=== PATIENT | female | born 1945 | race Caucasian/White ===

== ENCOUNTER → 2018-12-06 | Outpatient (CLI) | payer MEDICARE ==
[2018-12-06 12:19] LABS: BASOPHILS % (AUTO) 0 % (0-10); EOSINOPHILS # (AUTO) 0.1 10^3/uL (0.0-0.3); EOSINOPHILS % (AUTO) 2 % (0-10); HEMATOCRIT 38 % (35-52); HEMOGLOBIN 12.5 G/DL (11.5-16.0); LYMPHOCYTES % (AUTO) 20 % (12-44); MEAN CORPUSCULAR HEMOGLOBIN 30 PG (25-34); MEAN CORPUSCULAR HGB CONC 33 G/DL (32-36); MEAN CORPUSCULAR VOLUME 91 FL (80-99); MEAN PLATELET VOLUME 10.3 FL (7.4-10.4); MONOCYTES # (AUTO) 0.6 X 10^3 (0.0-1.0); MONOCYTES % (AUTO) 11 % (0-12); NEUTROPHILS # (AUTO) 3.4 X 10^3 (1.8-7.8); NEUTROPHILS % (AUTO) 67 % (42-75); PLATELET COUNT 240 10^3/uL (130-400); RED CELL DISTRIBUTION WIDTH 12.9 % (10.0-14.5)
== END ==
LOC: LAB FS 11:30
PROVIDERS: ATTEND Family Medicine
DX: C54.1 Malignant neoplasm of endometrium (principal)
CPT/HCPCS: 36415; 85025

== ENCOUNTER 2019-01-02 05:52 | Outpatient (CLI) | payer MEDICARE ==
[~2019-01-02] VITALS: Ht 170.2 cm; Wt 78.5 kg
[2019-01-02] MEDS ORDERED: ATOR40TA70 PO (12:27)
[2019-01-02] MEDS ORDERED: RANI150T90 PO (12:27)
[2019-01-02] MEDS ORDERED: LOSA50TA63 PO (12:27)
[2019-01-02] MEDS ORDERED: HYDR25TA4 PO (12:27)
[2019-01-02] MEDS ORDERED: CHOL10007 PO (12:29)
[2019-01-02] MEDS ORDERED: MULT-178 PO (12:29)
[2019-01-02] MEDS ORDERED: CALC-53 PO (12:29)
[2019-01-02] MEDS ORDERED: DOCU-238 PO (12:29)
[2019-01-02] MEDS ORDERED: CYAN250010 PO (12:29)
[2019-01-02] MEDS ORDERED: DIPH25CA65 PO (12:29)
== END 2019-01-02 13:25 | disposition home or self-care (01) ==
LOC: PREOP 05:52
PROVIDERS: ATTEND Surgery
DX: Z01.818 Encounter for other preprocedural examination (principal)

== ENCOUNTER 2019-01-09 11:17 | Day surgery (SDC) | payer MEDICARE ==
[~2019-01-09] VITALS: Ht 170.2 cm; Wt 78.5 kg
[~2019-01-09 11:17] MED LIST: ATOR40TA70 PO; CALC-53 PO; CHOL10007 PO; CYAN250010 PO; DIPH25CA65 PO; DOCU-238 PO; HYDR25TA4 PO; LOSA50TA63 PO; MULT-178 PO; RANI150T90 PO
[2019-01-09] MEDS ORDERED: LACTATED RINGERS 1,000 ML IV ONE (11:18)
--- OUTSIDE RECORDS SUMMARY | 2019-01-09 11:21 | XMS REPORT ---
Author Author EDIE MACIAS Organization [facility] Address [address] [place] [address] Care Team Providers Care Thickener Operator Name Role Phone EDIE MACIAS Unavailable PROBLEMS Type Condition ICD9-CM Code GOI10-FT Code Onset Dates Condition Status SNOMED Code Problem GERD (gastroesophageal reflux disease) K21.9 Active 090520124 Problem Hypertension, unspecified type I10 Active 36883232 Problem Hyperlipemia E78.5 Active 39349033 Problem Endometrial cancer C54.1 Active 354693324 ALLERGIES Substance Reaction Event Type Date Status Penicillin V Potassium hives Drug Allergy Aug, Active Enalaprilat cough Drug Allergy Aug, Active Clarithromycin rash Drug Allergy Aug, Active ENCOUNTERS Encounter Location Date Diagnosis [facility] [address] [place] [address] Aug, Hypertension, unspecified type I10 ; Hyperlipemia E78.5 ; GERD (gastroesophageal reflux disease) K21.9 and Endometrial cancer C54.1 [facility] [address] [place] [address] Aug, Hypertension, unspecified type I10 [facility] [id number], [place] [address] Aug, Hypertension, unspecified type I10 [facility] [address] [facility] [id number] [address] Jul, IMMUNIZATIONS No Known Immunizations SOCIAL HISTORY Never Assessed REASON FOR VISIT 6 Month F/U w/ labs PLAN OF CARE Activity Details Follow Up 6 Months Reason:fu with labs prior VITAL SIGNS Height 5ft 6in in 2018-08-17 Weight 174lb lbs 2018-08-17 BMI 28.08 kg/m2 2018-08-17 Blood pressure systolic 136 mmHg 2018-08-17 Blood pressure diastolic 72 mmHg 2018-08-17 MEDICATIONS Medication Instructions Dosage Frequency Start Date End Date Duration Status Ascorbic Acid 100 MG Orally Once a day 1 tablet 24h 30 day(s) Unknown Simvastatin 40 MG Orally Once a day 1 tablet in the evening 24h Active Multi Vitamin Daily - Orally Once a day 1 tablet 24h 30 day(s) Active Losartan Potassium 50 MG Orally Once a day 1 tablet 24h Active Cholecalciferol Active Ranitidine 150 Max Strength 150 MG Orally 2 times a day 1 tablet 12h Active Vitamin B-12 Active Calcium Carbonate-Vitamin D 600-400 MG-UNIT Orally Twice a day 1 tablet 12h 30 day(s) Active Ibuprofen 800 MG Orally Three times a day 1 tablet with food or milk as needed 8h Active Hydrochlorothiazide 25 MG Orally Once a day 1 tablet in the morning 24h Active Docusate Sodium 100 MG Orally Once a day 1 capsule as needed 24h 30 day(s) Unknown RESULTS No Results PROCEDURES Procedure Date Ordered Result Body Site [facility] VISIT NEW PATIENT Aug 17, 2018 INSTRUCTIONS MEDICATIONS ADMINISTERED No Known Medications MEDICAL (GENERAL) HISTORY Type Description Date Medical History Endometrial cancer Medical History Hyperlipemia Medical History Hypertension Medical History GERD (gastroesophageal reflux disease) Medical History History of colonic polyps Medical History Postmenopausal atrophic vaginitis Medical History Mixed stress and urge urinary incontinence Surgical History Complete Hysterectomy 04/2016 Hospitalization History Hysterectomy 04/2016
--- OUTSIDE RECORDS SUMMARY | 2019-01-09 11:21 | XMS REPORT | Continuity of Care Document ---
Author Organization Unknown Address Unknown Allergies There is no data. Medications There is no data. Problems There is no data. Procedures There is no data. Results There is no data. Encounters ACCT No. Visit Date/Time Discharge Status Pt. Type Provider Facility Loc./Unit Complaint [id number] 01/01/2019 00:00:00 01/01/2019 23:59:00 DIS Outpatient MARCELLA BAEZ [id number] 12/30/2018 00:00:00 12/30/2018 23:59:00 DIS Outpatient MARCELLA BAEZ [id number] 01/06/2019 09:00:00 ACT Outpatient EDIE MACIAS [facility]
[2019-01-09] MEDS ORDERED: MIDAZOLAM 2 MG/2 ML (VERSED) VIAL ONE (11:30)
[2019-01-09] MEDS ORDERED: PROPOFOL INJECTION 50 ML IV ONE (11:30)
[2019-01-09] MEDS ORDERED: LACTATED RINGERS 1,000 ML IV STA (11:42)
--- NOTE | 2019-01-09 11:42 | Progress Note-Pre Operative ---
Pre-Operative Progress Note H&P Reviewed The H&P was reviewed, patient examined and no changes noted. Time Seen by Provider: 11:39 Date H&P Reviewed: Jan 09, 2019 Time H&P Reviewed: 11:38 Pre-Operative Diagnosis: Chronic Gastritis, Rectal bleed, hx of polyps, family hx of colon CA KESHA DELGADO DO Jan 09, 2019 11:42
[2019-01-09] MEDS ORDERED: HURRICAINE EXT TUBE (BENZOCAINE) XX PRN (11:45)
[2019-01-09 11:46] VITALS: BP 141/89
--- NOTE | 2019-01-09 12:35 | Progress Note-Post Operative ---
Post-Operative Progess Note Surgeon (s)/Nutrition Aides Teacher (s) Surgeon KESHA DELGADO DO Nutrition Aides Teacher: none Pre-Operative Diagnosis Chronic Gastritis, Rectal bleed, hx of polyps, family hx of colon CA Post-Operative Diagnosis Gastritis Hiatal Hernia Esophagitis Diverticula Internal Hemorrhoid Procedure & Operative Findings Date of Procedure 01/09/19 Procedure Performed/Findings EGD with bx Colonoscopy Anesthesia Type IV sedation by FEED ADVISER Estimated Blood Loss Estimated blood loss (mL): scant Specimens/Packing Specimens Removed Antral bx GE jxn bx KESHA DELGADO DO Jan 09, 2019 12:35
--- NOTE | 2019-01-09 12:36 | Endoscopy Discharge Instruct ---
Endo Procedure/Findings Findings 1.: Gastritis 2.: Hiatal Hernia 3.: Diverticulosis 4.: Internal Hemorrhoids Discharge Instructions - Activity: You might feel a little sleepy until tomorrow. This is due to the medicine you received to relax you. Until tomorrow, you should: NOT drive a car, operate machinery or power tools. NOT drink any alcoholic beverages. NOT make any important decisions or sign importortant papers. Do not return to work until tomorrow, unless otherwise instructed. Resume previous activities tomorrow. Diet: Start by taking liquids. If you tolerate liquids, advance to solid food. make an appointment to see me in one week Notify Physician - If you experience excessive bleeding, unusual abdominal pain, fever, or chest pain, contact your doctor immediately. Follow-Up: - I have received and understand the above instructions and will call my doctor if I have any further questions. Patient Signature Date Nurse Signature Other (Relationship) KESHA DELGADO DO Jan 09, 2019 12:36
[2019-01-09 12:55] VITALS: BP 132/72
[2019-01-09 13:25] VITALS: BP 128/77
[2019-01-09 13:28] VITALS: BP 128/77
--- NOTE | 2019-01-09 18:35 | OPERATIVE REPORT ---
DATE OF SERVICE: 01/09/2019 PREOPERATIVE DIAGNOSES: 1. Chronic gastritis. 2. Rectal bleed. 3. Personal history of polyps. 4. Strong family history of colon cancer. POSTOPERATIVE DIAGNOSES: 1. Gastritis. 2. Hiatal hernia. 3. Diverticula. 4. Internal hemorrhoids. PROCEDURE: 1. EGD with biopsy. 2. Colonoscopy. SURGEON: Mauro Valdez DO RECREATION ESTABLISHMENT MANAGER: None. ANESTHESIA: IV sedation by the INSURANCE APPRAISER. SPECIMEN: One biopsy from the antrum, one biopsy from the GE junction. BLOOD LOSS: Scant. FLUIDS: Per anesthesia. POSTOPERATIVE CONDITION: Stable. INDICATION FOR PROCEDURE: The patient is a 73-year-old female who has been having some chronic gastritis and needed an EGD as well. She had noted some rectal bleeding with a personal history of colon polyps and strong family history of colon cancer and needed a colonoscopy. FINDINGS: The patient had some mild gastritis. She had a large hiatal hernia with some possible esophagitis and she did have actually bile that was already refluxing up into the esophagus. In the colon saw some diverticula and then some minimal internal hemorrhoids. No other obvious pathology. PROCEDURE NOTE: After informed consent was obtained, the patient was brought to the endoscopy suite, placed in the bed in left lateral decubitus position. She was administered IV sedation by the INSURANCE APPRAISER and then monitored her vitals the entire time, heart rate, blood pressure and pulse ox and the scope was inserted down the mouth through the esophagus into the stomach. In the esophagus noted some bile, pushed into the stomach. Lot of bile in the stomach and then pushed into the small intestine. Small intestine looks fine, pulled back. Saw some mild gastritis, elected to do a biopsy of the antrum and then retroflexed the scope, saw large hiatal hernia, took a picture of this and then pulled back into the GE junction, did a biopsy of the GE junction then pulled the scope up the esophagus and out of the mouth and then switched gloves and switched cameras and went below and started the colonoscopy. Inserted the scope, pushed all the way in to about 160 cm, finally able to get to the cecum, took a picture of appendiceal orifice and then slowly withdrew the scope insufflating to look circumferentially at the ko looking at the cecum up the ascending colon to the hepatic flexure, then down the transverse colon to the splenic flexure, into the descending colon and down in the sigmoid area and then finally into the rectum. Throughout the descending colon and sigmoid, saw some diverticula and then retroflexed in the rectal vault, saw minimal internal hemorrhoids, took a picture of this and then removed the scope. The patient tolerated the procedure and she was recovered in endoscopy suite. Job ID: [id number] DocumentID: [id number] Dictated Date: 01/09/2019 12:32:50 Medical Laboratory Specialist Date: 01/09/2019 18:34:15 Dictated By: MAURO VALDEZ DO
== END 2019-01-09 13:30 | disposition home or self-care (01) ==
LOC: ENDO 11:17
PROVIDERS: ATTEND Surgery
DX: K29.50 Unspecified chronic gastritis without bleeding (principal); K44.9 Diaphragmatic hernia without obstruction or gangrene; K57.30 Diverticulosis of large intestine without perforation or abscess without bleeding; K64.8 Other hemorrhoids; Z86.010 Personal history of colon polyps; Z80.0 Family history of malignant neoplasm of digestive organs; E78.5 Hyperlipidemia, unspecified; I10 Essential (primary) hypertension; Z88.0 Allergy status to penicillin; Z88.1 Allergy status to other antibiotic agents; Z85.42 Personal history of malignant neoplasm of other parts of uterus; Z79.899 Other long term (current) drug therapy

== ENCOUNTER → 2019-12-15 | Outpatient (CLI) | payer MEDICARE | LOC: CARD 13:06 | PROVIDERS: ATTEND Family Medicine | DX: R06.02 Shortness of breath (principal); I34.0 Nonrheumatic mitral (valve) insufficiency | CPT/HCPCS: 93306 ==

== ENCOUNTER → 2023-01-04 | Outpatient (CLI) | payer MEDICARE ==
[~2023-01-04] MED LIST changes: -DOCU-238 PO; +DOCU-26 PO
== END ==
LOC: CARD 12:22
PROVIDERS: ATTEND Internal Medicine
DX: I34.0 Nonrheumatic mitral (valve) insufficiency (principal); J84.9 Interstitial pulmonary disease, unspecified; M05.741 Rheumatoid arthritis with rheumatoid factor of right hand without organ or systems involvement; Z79.899 Other long term (current) drug therapy
CPT/HCPCS: 93306